=== PATIENT | female | born 1965 | race African-American/Black ===

== ENCOUNTER 2016-03-10 20:46 | Observation (INO) | payer OTHER ==
[~2016-03-10] VITALS: Ht 162.6 cm; Wt 81.6 kg
--- NOTE | 2016-03-10 21:12 | ED NEURO DEFICIT/STROKE ---
History of Present Illness General Chief Complaint: Neuro Symptoms/ Deficit Stated Complaint: RIGHT SIDE FACIAL TINGLING W/HEADACHE Source: patient Exam Limitations: no limitations Vital Signs & Intake/Output Vital Signs & Intake/Output Vital Signs Date Time Temp Pulse Resp B/P Pulse O2 O2 Flow FiO2 Ox Delivery Rate 03/10 2107 98.2 78 16 148/80 98 Room Air Room Air ED Intake and Output 03/11 0000 03/10 1200 Intake Total 120 Output Total Balance 120 Intake, Oral 120 Allergies Coded Allergies: No Known Allergies (03/10/16) Reconcile Medications Albuterol Sulfate (Proair Hfa) 90 MCG HFA.AER.AD 2 PUF INH Q4-6 PRN PRN BREATHING (Reported) Amitriptyline HCl 75 MG TABLET 1 TAB PO QPM DEPRESSION (Reported) Aspirin (Aspirin*) 81 MG TAB.CHEW 1 TAB PO DAILY HEART (Reported) Atorvastatin Calcium 40 MG TABLET 1 TAB PO DAILY HEART (Reported) Fluticasone Propionate (Flonase Allergy Relief) 50 MCG/ACTUATION SPRAY.SUSP 2 SPRAY LIANNA PRN ALLERGIES (Reported) Fluticasone-Salmeterol (Advair 100-50 Diskus) (Unknown Strength) BLST.W.DEV ( Unknown Dose) INH BID BREATHING (Reported) Levomilnacipran Hydrochloride (Fetzima) 40 MG CAP.SA.24H 2 CAP PO DAILY DEPRESSION (Reported) Levothyroxine Sodium 50 MCG TABLET 1 TAB PO DAILY THYROID (Reported) Losartan Potassium 100 MG TABLET 0.5 TAB PO DAILY HEART (Reported) Methylphenidate HCl (Methylphenidate ER) 54 MG TAB.ER.24 1 TAB PO QAM ATTENTION (Reported) Pregabalin (Lyrica) 300 MG CAPSULE 1 CAP PO BID FIBROMYALGIA (Reported) Zolpidem Tartrate 10 MG TABLET 1 TAB PO QPMP SLEEP (Reported) Triage Note: PT TO TRIAGE WITH RIGHT LWOER FACIAL TINGLING SINC E 1200 TODAY. PT STATES SHE HAS HAD A HEADACHE FOR A MONTH ON AND OFF THAT FEELS DIFFERENT TO HER MIGRAINES. PT ALSO STATES SHE HAS "TROUBLE EXPRESSING HERSELF TODAY" WHEN ASKED WHEN IT STARTED, SHE STATES AROUND NOON. PT IS ALERT AND ORIENTED, PT STATES SHE IS NOT HAVING TROUBLE SPEAKING, BUT THIS NURSE HEARS A SLIGHT LISP. PT FACE IS SYMMETRICAL AND HAND GRASP EQUAL Triage Nurses Notes Reviewed? yes Onset: Abrupt Duration: hour(s): Timing: recent history Severity: mild Altered Sensations: numbness and tingling on right face Vision Problem? No Glaucoma? No Impaired Ability: difficult to speak Baseline: alert, oriented x 3 Associated Symptoms: dizziness, headache HPI: 50 yo woman h/o tia six months ago, presents with 9 hours of difficulty speaking with word-finding difficulty. She also has a headache and tingling on the right side of her face. She notes no weakness of her upper or lower extremities or facial droop. Her symptoms have been stable since they began 9 hours ago. Past History Travel History Traveled to [place] past 21 day No Medical History Any Pertinent Medical History? see below for history Neurological: TIA Surgical History Surgical History: none Psychosocial History What is your primary language Syriac Family History Hx Contributory? No Review of Systems Review of Systems Constitutional: Reports: no symptoms. EENTM: Reports: no symptoms. Respiratory: Reports: no symptoms. Cardiovascular: Reports: no symptoms. GI: Reports: no symptoms. Genitourinary: Reports: no symptoms. Musculoskeletal: Reports: no symptoms. Skin: Reports: no symptoms. Neurological/Psychological: Reports: no symptoms. Hematologic/Endocrine: Reports: no symptoms. Immunologic/Allergic: Reports: no symptoms. All Other Systems: Reviewed and Negative Physical Exam Physical Exam General Appearance: well developed/nourished, mild distress Head: atraumatic, normal appearance Eyes: Bilateral: normal appearance, PERRL, EOMI. Ears, Nose, Throat: normal ENT inspection, moist mucous membrane, hearing grossly normal Neck: normal inspection, supple, full range of motion Respiratory: normal breath sounds, chest non-tender, no respiratory distress, quiet respiration, lungs clear Cardiovascular: regular rate/rhythm Gastrointestinal: normal bowel sounds, soft, non-tender, no organomegaly Back: normal inspection Extremities: normal range of motion Psychiatric: awake, alert, oriented x 3 Cranial Nerves: normal hearing, normal speech, PERRL, pt's speaking is slow, but articulation is normal. Coordination/Gait: normal finger to nose Motor/Sensory: no motor/sensory deficits Skin: intact, normal color, warm/dry Core Measures CVA/TIA Diagnosis: Yes NIH Stroke Scale: Total 0 Comment: no need for tpa due to duration of 9 hours of symptoms as well as low stroke score. Severe Sepsis Present: No Septic Shock Present: No Progress Differential Diagnosis: Jackson's Palsy, electrolyte imbalance, tia vs cva Plan of Care: Orders Procedure Date/time Status Nothing by Mouth 03/11 B Active XRY-PORTABLE CHEST XRAY 03/11 9 Active Heart Healthy Diet 03/10 D Complete Intake & Output 03/10 2357 Active Saline Lock 03/[address] in observation 03/10 2233 Active Misc Message 03/10 2233 Active ED Holding Orders 03/10 2233 Active Vital Signs 03/10 2233 Active Code Status 03/10 2233 Active Patient Data 03/10 2152 Active TROPONIN LEVEL 03/10 2055 Complete PARTIAL THROMBOPLASTIN TIME 03/10 2055 Complete PROTHROMBIN TIME 03/10 2055 Complete COMPREHENSIVE METABOLIC PANEL 03/10 2055 Complete CBC WITHOUT DIFFERENTIAL 03/10 2055 Complete EKG 03/10 2055 Active Current Medications Sig/Chu Start time Last Medication Dose Stop Time Status Admin Aspirin 81 MG DAILY 03/11 1000 UNVr (Aspirin) Atorvastatin Calcium 40 MG DAILY 03/11 1000 UNVr (Lipitor) Levothyroxine Sodium 0.05 MG DAILY 03/11 1000 UNVr (Synthroid) Amitriptyline HCl 75 MG AT BEDTIME 03/11 15 UNVr (Elavil 50 MG Tablet) Pregabalin 300 MG BID 03/11 15 UNVr (Lyrica) Zolpidem Tartrate 10 MG .[QPMP] 03/11 15 UNVr (Ambien) Methylphenidate HCl 15 MG BID 03/11 7 UNVr (Ritalin) Laboratory Tests 03/10/162136: Anion Gap 8, Estimated GFR > 60, BUN/Creatinine Ratio 13.3, Glucose 128 H, Calcium 8.8, Total Bilirubin 0.3, AST 27, ALT 36, Alkaline Phosphatase 116, Troponin I < 0.01, Total Protein 6.7, Albumin 3.7, Globulin 3.0, Albumin/ Globulin Ratio 1.2, PT 11.9, INR 1.13, APTT 37, CBC w Diff NO MAN DIFF REQ, RBC 4.83, MCV 81.4, MCH 26.7 L, RDW 13.2, MPV 8.7, Gran % 63.6, Lymphocytes % 25.8, Monocytes % 8.2, Eosinophils % 2.1, Basophils % 0.3, Absolute Granulocytes 3.6, Absolute Lymphocytes 1.5, Absolute Monocytes 0.5, Absolute Eosinophils 0.1, Absolute Basophils 0, PUBS MCHC 32.8 L Diagnostic Imaging: Viewed by Me: CT Scan. Discussed w/RAD: CT Scan. Radiology Impression: head ct... no acute finding. Initial ED EKG: normal axis, normal intervals, normal p-waves, normal QRS complex, normal sinus rhythm Comments: PATIENT: JOANNA JOSE PRESENT AGE: 50 PATIENT ACCOUNT NO: [id number] : 63 LOCATION: [facility] ORDERING PHYSICIAN: JULIA JONES MD SERVICE DATE: 03/10/16 EXAM TYPE: CAT - CT HEAD WO IV CONTRAST EXAMINATION: CT HEAD WITHOUT CONTRAST CLINICAL INFORMATION: Transient ischemic attack. COMPARISON: Noncontrast head CT 07/16/2008. TECHNIQUE: Contiguous axial imaging was performed from the skull base to vertex without intravenous administration of contrast. DLP: 600 mGy-cm. FINDINGS: No acute intracranial abnormality. No acute intracranial hemorrhage, mass or mass effect or abnormal extra-axial fluid collections. The density within the dural venous sinuses is within normal limits. The ventricles are normal in size, without hydrocephalus. There are no focal areas of hypoattenuation within a vascular distribution to suggest acute transcortical ischemia. The basilar cisterns are patent. The sella is mildly prominent and is visualized measuring approximately 1.2 cm in AP diameter. There is CSF attenuation within the sella. The sella previously measured 0.9 cm in AP diameter on a prior head CT dating back to 2008. No acute calvarial abnormality is identified. Soft tissues appear unremarkable. The imaged paranasal sinuses and mastoid air cells are well aerated. IMPRESSION: 1. No acute intracranial abnormality. 2. Incidental note is made of mild prominence of the sella, which is visualized measuring approximately 1.2 cm in diameter. There is CSF fluid attenuation within the sella which could reflect an empty sella. DICTATED BY: JASE ALANIS MD DATE/TIME DICTATED:03/10/162129 [employer] WORKER:JAMES DATE/TIME TRANSCRIBED:03/10/162129 CONFIDENTIAL, DO NOT COPY WITHOUT APPROPRIATE AUTHORIZATION. <Electronically signed in Other Vendor System> SIGNED BY: JASE ALANIS MD 03/10/162135 Departure Departure Disposition: STILL A PATIENT Condition: Stable Clinical Impression Primary Impression: TIA (transient ischemic attack) Referrals: MARCIE NICK,MARITZA Mendez (PCP/Family) Referred to [facility] as new patient No Departure Forms: Customer Survey General Discharge Information Observation Note Spoke With: MING HOFFMANN MD Physician Advisor Notified: BRANDAN NICK,DOT [address] Patient In: Non-ED OBS Care Area Rationale for Observation: My rational for observation is as follows . pt with history of recent tia 8 months ago, presents with dysarthria and word finding difficulties x 9 hours. Due to duration of symptoms and low stroke score, no need for tpa.
--- NOTE | 2016-03-10 21:36 | CT SCAN REPORT ---
EXAMINATION: CT HEAD WITHOUT CONTRAST CLINICAL INFORMATION: Transient ischemic attack. COMPARISON: Noncontrast head CT 07/16/2008. TECHNIQUE: Contiguous axial imaging was performed from the skull base to vertex without intravenous administration of contrast. DLP: 600 mGy-cm. FINDINGS: No acute intracranial abnormality. No acute intracranial hemorrhage, mass or mass effect or abnormal extra-axial fluid collections. The density within the dural venous sinuses is within normal limits. The ventricles are normal in size, without hydrocephalus. There are no focal areas of hypoattenuation within a vascular distribution to suggest acute transcortical ischemia. The basilar cisterns are patent. The sella is mildly prominent and is visualized measuring approximately 1.2 cm in AP diameter. There is CSF attenuation within the sella. The sella previously measured 0.9 cm in AP diameter on a prior head CT dating back to 2008. No acute calvarial abnormality is identified. Soft tissues appear unremarkable. The imaged paranasal sinuses and mastoid air cells are well aerated. IMPRESSION: 1. No acute intracranial abnormality. 2. Incidental note is made of mild prominence of the sella, which is visualized measuring approximately 1.2 cm in diameter. There is CSF fluid attenuation within the sella which could reflect an empty sella.
[2016-03-10 21:44] LABS: ABSOLUTE BASOPHIL COUNT 0 /CUMM (0.0-0.2); ABSOLUTE EOSINOPHIL COUNT 0.1 /CUMM (0.0-0.7); ABSOLUTE GRANULOCYTE CT 3.6 /CUMM (1.4-6.5); ABSOLUTE LYMPH COUNT 1.5 /CUMM (1.2-3.4); ABSOLUTE MONOCYTE COUNT 0.5 /CUMM (0.10-0.60); BASOPHIL % 0.3 % (0.0-2.0); EOSINOPHIL % 2.1 % (0-5); GRANULOCYTE % 63.6 % (42.2-75.2); HEMATOCRIT 39.3 % (37-47); MEAN CORPUSCULAR HGB 26.7 PG (27.0-31.0); MEAN CORPUSCULAR HGB CONC 32.8 G/DL (33.0-37.0); MEAN CORPUSCULAR VOLUME 81.4 FL (81.0-99.0); MEAN PLATELET VOLUME 8.7 FL (7.4-10.4); PLATELET COUNT 225 /CUMM (130-400); RBC DISTRIBUTION WIDTH 13.2 % (11.5-14.5); RED BLOOD CELL CT 4.83 /CUMM (4.20-5.40); WHITE BLOOD CELL COUNT 5.7 /CUMM (4.8-10.8)
[2016-03-10 21:54] LABS: PT 11.9 SEC (9.4-12.5); PTT 37 SEC (25-37)
[2016-03-10] MEDS ORDERED: ATORVASTATIN CA40 M1 PO (21:56)
[2016-03-10] MEDS ORDERED: LYRICA300 M1 PO (21:56)
[2016-03-10] MEDS ORDERED: LOSARTAN POTAS100 M1 PO (21:57)
[2016-03-10] MEDS ORDERED: LEVOTHYROXINE50 MCG PO (21:57)
[2016-03-10] MEDS ORDERED: ZOLPIDEM TARTRA10 M1 PO (21:57)
[2016-03-10] MEDS ORDERED: METHYLPHENIDATE54 M2 PO (21:58)
[2016-03-10] MEDS ORDERED: AMITRIPTYLINE H75 M2 PO (21:59)
[2016-03-10] MEDS ORDERED: ASPIRIN81 M4 PO (21:59)
[2016-03-10] MEDS ORDERED: PROAIR HFA8.5 GM INH (22:00)
[2016-03-10] MEDS ORDERED: ADVAIR 100-501 EACH INH (22:00)
--- NOTE | 2016-03-10 22:11 | History & Physical ---
SEAN LINTON MD 03/10/16 2206: General Information and HPI Source of Information: patient Exam Limitations: no limitations History of Present Illness: Patient is a 50 years old female with past medical history of migraine, depression, anxiety, fibromyalgia, hypothyroidism, hypertension, seasonal allergy , borderline diabetes presented with chief complaints of headache and pain on right side of the face, since couple of days. She is having headache since last 5 days. It is gradually progressing. It is squeezing in nature. Involving right half of the face, going back into the neck, associated with tingling and numbness of the face. At the time of the onset she was unable to saw words on the screen,they were more blurry. She is also complaining of nausea, vomiting.She feels her speech is laboured. Patient denies chest pain, fever, chills, diarrhea, constipation, abdominal pain , trauma, pain in the jaw, difficulty in chewing, difficulty in swallowing, difficulty in hearing, dizziness, staggering gait. Patient claims that she has history of migraines since last 3-4 years. She occasionally, take a combination of Tylenol plus ibuprofen plus lidocaine, which she got from her home country. He does have with her symptoms. At it before. She has very severe migraine so she took a pill and felt a little better. Patient does want to come to the hospital. That's why she waited to come till today in the morning. 6 Months ago. She had an episodes of amnesia associated with focal seizures and rolling of her eyes, following which she was admitted for 7 days and completely evaluated in the [facility]. She does not know exactly the cause of her amnesia and seizures. She claims that she has a small spot in his brain. Past surgical history of-oophorectomy/hysterectomy, stomach surgery. Personal history-quit smoking 27 years ago, does not drink alcohol. Family history of-2 and regular diet of stroke, father of brain tumor. Allergies/Medications Allergies: Coded Allergies: No Known Allergies (03/10/16) Home Med list Albuterol Sulfate (Proair Hfa) 90 MCG HFA.AER.AD 2 PUF INH Q4-6 PRN PRN BREATHING (Reported) Amitriptyline HCl 75 MG TABLET 1 TAB PO QPM DEPRESSION (Reported) Aspirin (Aspirin*) 81 MG TAB.CHEW 1 TAB PO DAILY HEART (Reported) Atorvastatin Calcium 40 MG TABLET 1 TAB PO DAILY HEART (Reported) Fluticasone Propionate (Flonase Allergy Relief) 50 MCG/ACTUATION SPRAY.SUSP 2 SPRAY LIANNA PRN ALLERGIES (Reported) Fluticasone-Salmeterol (Advair 100-50 Diskus) (Unknown Strength) BLST.W.DEV ( Unknown Dose) INH BID BREATHING (Reported) Levomilnacipran Hydrochloride (Fetzima) 40 MG CAP.SA.24H 2 CAP PO DAILY DEPRESSION (Reported) Levothyroxine Sodium 50 MCG TABLET 1 TAB PO DAILY THYROID (Reported) Losartan Potassium 100 MG TABLET 0.5 TAB PO DAILY HEART (Reported) Methylphenidate HCl (Methylphenidate ER) 54 MG TAB.ER.24 1 TAB PO QAM ATTENTION (Reported) Pregabalin (Lyrica) 300 MG CAPSULE 1 CAP PO BID FIBROMYALGIA (Reported) Zolpidem Tartrate 10 MG TABLET 1 TAB PO QPMP SLEEP (Reported) Compliance With Home Meds: GOOD Past History Travel History Traveled to [place] past 21 day No Medical History Neurological: TIA Musculoskeletal: FIBROMYALGIA Psychiatric: depression Endocrine: THYOID Surgical History Surgical History: hysterectomy Review of Systems Review of Systems Constitutional: Denies: chills, diaphoresis, fever, malaise, weakness, unexplained weight loss. EENTM: Reports: blurred vision. Denies: hearing changes, nasal congestion, epistaxis, nasal pain, throat pain, throat swelling, mouth pain, tooth pain. Cardiovascular: Denies: chest pain, edema, orthopena, palpitations, peripheral edema, syncope. Respiratory: Denies: cough, hemoptysis, orthopnea, short of breath, sputum production, stridor, wheezing. GI: Denies: bloating, constipation, diarrhea. Genitourinary: Denies: dysuria, frequency. Musculoskeletal: Denies: back pain, gout, joint pain, joint swelling, muscle pain, muscle stiffness, neck pain. Skin: Denies: no symptoms. Neurological/Psychological: Reports: depressed, tingling. Denies: weakness. Exam & Diagnostic Data Last 24 Hrs of Vital Signs/I&O Vital Signs Date Time Temp Pulse Resp B/P Pulse O2 O2 Flow FiO2 Ox Delivery Rate 03/11 0009 97.1 67 18 149/90 95 Room Air 03/10 2107 98.2 78 16 148/80 98 Room Air Room Air Intake & Output 03/11 0800 03/11 0000 03/10 1600 Intake Total 120 Output Total Balance 120 Intake, Oral 120 Patient 81.647 kg Weight Physical Exam General Appearance Alert, Oriented X3, Cooperative, No Acute Distress Skin No Rashes, No Breakdown HEENT Atraumatic, PERRLA, EOMI Neck Supple, No JVD, No thryomegaly Cardiovascular Regular Rate, Normal S1, Normal S2, No Murmurs Lungs Clear to Auscultation Abdomen Soft, No Tenderness Neurological Normal Speech, Strength at 5/5 X4 Ext, Normal Tone, Sensation Intact, Cranial Nerves 3-12 NL Extremities No Clubbing, No Cyanosis, No Edema, Normal Pulses Vascular Normal Pulses Assessment/Plan Assessment: Assessment and plan - CT Scan of Head - 1. No acute intracranial abnormality. 2. Incidental note is made of mild prominence of the sella, which is visualized measuring 1.2 cm in diameter. There is CSF fluid attenuation within the sella which could reflect an empty sella. Problem list- Facial tingling and numbness, probable cause is a typical migraine/TIA/otitis media/Jackson's palsy/trigeminal neuralgia Migraine Hypertension Hypothyroidism Depression Anxiety Fibromyalgia Borderline diabetes Plan Facial tingling and numbness, probable cause is a typical migraine/TIA/otitis media/Jackson's palsy/trigeminal neuralgia/ Migraine * CT scan does not showed any acute changes, so will plan for MRI of the brain to rule out any ischemic infarct * We will give the patient tablet, aspirin 325 mgs once, followed by 81 mgs PO OD * We will do echocardiogram/carotid Doppler to rule out the causes of embolization * Neurochecks every 4 hourly * We will place a neurology consult and follow the recommendation * Meantime, we will give Tylenol/morphine to take care of the pain Hypertension * We'll continue tablet Cozaar 50 milligrams OD as before Hypothyroidism * We will continue levothyroxine as before Depression/Anxiety/Fibromyalgia * We will continue zolpidem, methylphenidate, Lyrica, amitriptyline * We will add FetZemia to the regimen. Pharmacy doesn't have this medication and patient will bring from home * We will place a consult to follow-up with all antipsychotic medication Borderline diabetes * She is managing diabetes by taking care of diet and exercise * Will check HbA1c to see the control of the blood sugar level in her body Diet -heart healthy diet DVT prophylaxis -ALP S/heparin CODE STATUS -full code As Ranked By This Provider Problem List: 1. TIA (transient ischemic attack) 2. Fibromyalgia 3. Migraine 4. Borderline diabetes mellitus 5. Hypothyroidism 6. Hypertension Core Measures/Miscellaneous Acute Coronary Syndrome ACS Diagnosis: No Cerebrovascular Accident CVA/TIA Diagnosis: Yes NIH Stroke Scale: Total 0 Date Last Known Well: 03/11/16 Congestive Heart Failure CHF Diagnosis: No Venous Thromboembolism VTE Risk Factors: Age > 40, Obesity VTE Prophylaxis Ordered Inpt: Mechanical (ALPS/TEDS) No Mech VTE prophylaxis d/t: No contraindications No VTE Pharm Prophylaxis d/t: No contraindications VTE Diagnosis: No VTE Type: NONE VTE Confirmed by (Test): NONE Severe Sepsis Severe Sepsis Present: No Septic Shock Septic Shock Present: No Miscellaneous Documentation Attending Case Discussed With: MING HOFFMANN MD Primary Care Physician: MARITZA JACK MD Patient sees these Specialists cardiology gastero neuro Level of Patient Care: Telemetry JESSIE REVELES 03/11/16 0041: Resident Review Statement Resident Statement: examined this patient, discussed with machine learning intern, agreed with machine learning intern, amended to note Other Findings: 50 -year-old lady with past medical history of hypertension, anxiety, depression , previous TIA 6 months ago, fibromyalgia,ADHD? 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 Patient reportedly started having headaches on the right side of back of her head, squeezing, 10 out of 10, associated with stress, blurry vision 3 times, not associated with photophobia, vomiting, dizziness, tinnitus, weakness in the limbs. Patient has taken some medication from [place] for pain control. She reported that the headaches persisted through today and today she had difficulty finding words, tingling on her right chin with mild nausea. Patient' s symptoms are much better now after 975 acetaminophen. Patient has a history of TIA/CVA and according to her full workup done . cell tuber hand dr rodriguez, Rheum Dr. Leyva. Patient denies diarrhea, constipation, changes in urinary or bowel habits Vital signs in addition 95% oxygen saturation on room air, temperature 97.1, WI 67, RR 18, BP 149/90 General appearance alert and oriented 3, not in distress HEENT Atraumatic, PERRLA, EOMI Neck Supple, No JVD, No thryomegaly, mild pain in the right jaw and back of the head on the right side Cardiovascular Regular Rate, Normal S1, Normal S2 Lungs Clear to Auscultation, Normal Air Movement Abdomen Normal Bowel Sounds, Soft, No Tenderness, No Hepatospenomegaly, No Masses, Neurological Normal Speech, Strength at 5/5 X4 Ext, Sensation Intact, cranial nerves grossly normal Extremities No Clubbing, No Cyanosis, trace Edema bilaterally ,Normal Pulses EKG showed normal sinus rhythm, QTC 440, no previous EKGs, inverted T's in lead 3 and V1, no acute ST-T changes HEAD CT IMPRESSION: 1. No acute intracranial abnormality. 2. Incidental note is made of mild prominence of the sella, which is visualized measuring approximately 1.2 cm in diameter. There is CSF fluid attenuation within the sella which could reflect an empty sella. Notable labs HCO3 31 Assessment and plan #Atypical migraine versus TIA versus trigeminal nervalgia -Echocardiogram -High-dose aspirins once and continue aspirin and statin -Carotid Doppler ultrasounds -Neurology consult in the morning -Neuro checks Q4 -High-dose Tylenol for pain in addition to morphine -MRI is not availabe till Sunday History of hypertension -Continue Cozaar History of anxiety/depression/ADHD?/Insomnia/fibromyalgia -Continue zolpidem, methylphenidate, Lyrica, amitriptyline -Consider psych consult for medication adjustment -Pharmacy does not had FETZMIA, patient needs to bring it from home. -Hypothyroidism -Continue levothyroxine DVT prophylaxis is mechanical and Lovenox, full code, heart healthy diet, Tylenol & morphine for pain MING HOFFMANN 03/11/16 0644: Attending MD Review Statement Attending Statement Attending MD Statement: examined this patient, discuss w/resident/PA/GLAZE MAKER, agreed w/resident/PA/GLAZE MAKER, discussed with family, reviewed EMR data (avail), reviewed images, amended to note Attending Assessment/Plan: Cc: Right-sided headache, tingling in right face, difficulty in speaking PMH: History of TIA 6 months back, fibromyalgia, anxiety, depression, migraine, HTN, hypothyroidism Patient started to notice headache on right side mostly behind her ear. She tried some medication brought from [facility] for migraine. Today patient noticed tingling of her right side of her face, and difficulty speaking. Patient had blurry vision for 2 days. She had history of TIA, she was concerned so she came to ER. No chest pain, palpitations, neurological weakness in upper or lower extremities, loss of consciousness, falls. Vitals: afebrile, RR, HR, BP, O2 saturation within acceptable range. On examination: a O 3, no acute distress, complete neurological examination did not reveal any focal neurological deficit including Cranial nerves except gait could not be assessed. Speech was clear. CVS: S1-S2, RRR. RS: Clear air entry bilaterally present. Abdomen: Soft, NT, ND bowel sounds present, no dependent edema . Labs: CBC, BMP, LFT unremarkable. INR 1.13. EKG no remarkable changes. CT head: No acute intracranial abnormality. Incidental note is made of mild prominence of the sella, which is visualized measuring approximately 1.2 cm in diameter. There is CSF fluid attenuation within the sella which could reflect an empty sella. A and P #1 tingling numbness on the right lower aspect of her face along with speech difficulty: Associated with headache, less likely TIA, questionable complicated migraine. Check ESR, neurochecks, MRI of brain, carotid Doppler, 2-D echo, neurologic consult in a.m. I suggested not to take the medications which she brought from [facility]. Continue aspirin and statin. Check lipid profile if not done #2 chronic stable conditions: Fibromyalgia, anxiety, depression, HTN, hypothyroidism continue rest of her home medications. Including Lyrica, losartan, Synthroid, zolpidem, amitriptyline, methylphenidate. #3 DVT prophylaxis with Lovenox. Adequate pain control.
[2016-03-10] MEDS ORDERED: FLONASE ALLERG9.9 ML NAS (22:55)
[2016-03-10] MEDS ORDERED: FETZIMA40 M1 PO (23:31)
--- NOTE | 2016-03-11 00:42 | Patient Discharge Instructions ---
Discharge Instructions General Discharge Information You were seen/treated for: TIA ATYPICAL MIGRAINE You had these procedures: NONE Watch for these problems: HEADACHE PAIN RIGHT SIDE OF THE FACE Special Instructions: FOLLOW UP WITH YOUR PRIMARY CARE DOCTOR IN 1 WEEK FOLLOW UP WITH NEUROLOGIST IN ONE WEEK Diet Continue normal diet: Yes Activity Full Activity/No Limits: Yes Acute Coronary Syndrome Inclusion Criteria At DC or during hospital stay patient has or had the following: ACS DIAGNOSIS No Discharge Core Measures Meds if any: Prescribed or Continued at Discharge Meds if any: NOT Prescribed or Continued at Discharge Congestive Heart Failure Inclusion Criteria At DC or during hospital stay patient has or had the following: CHF DIAGNOSIS No Discharge Core Measures Meds if any: Prescribed or Continued at Discharge Meds if any: NOT Prescribed or Continued at Discharge Cerebrovascular accident Inclusion Criteria At DC or during hospital stay patient has or had the following: CVA/TIA Diagnosis Yes Discharge Core Measures Meds if any: Prescribed or Continued at Discharge Meds if any: NOT Prescribed or Continued at Discharge Venous thromboembolism Inclusion Criteria VTE Diagnosis No VTE Type NONE VTE Confirmed by (Test) NONE Discharge Core Measures - Per Current guidelines, there needs to be overlap - treatment for the first 5 days of Warfarin therapy. - If discharged on Warfarin prior to 5 days of - overlap therapy, the patient will need to be - assessed for post discharge needs including - *Post discharge parental anticoagulation - *Warfarin and/or parental anticoagulation education - *Follow up date to check INR post discharge At least 5 days overlap therapy as Inpatient No Meds if any: Prescribed or Continued at Discharge Note: Overlap Therapy is Warfarin and Anticoagulant Meds if any: NOT Prescribed or Continued at Discharge
[2016-03-11 01:11] VITALS: BP 140/90
--- NOTE | 2016-03-11 06:35 | PN- Housestaff ---
JESSIE REVELES 03/11/16 0635: Subjective Follow-up For: rule out TIA Subjective: I have seen and examined the patient. she still has the 4 pain in her head. but tingling is better. Review of Systems Constitutional: Reports: see HPI. Objective Last 24 Hrs of Vital Signs/I&O Vital Signs Date Time Temp Pulse Resp B/P Pulse O2 O2 Flow FiO2 Ox Delivery Rate 03/11 0202 77 140/90 03/11 0111 98.0 76 20 140/90 96 Room Air 03/11 0009 97.1 67 18 149/90 95 Room Air 03/10 2107 98.2 78 16 148/80 98 Room Air Room Air Intake & Output 03/11 0800 03/11 0000 03/10 1600 Intake Total 200 120 Output Total Balance 200 120 Intake, Oral 200 120 Patient 180 lb Weight Physical Exam General Appearance: Alert, Oriented X3, Cooperative, No Acute Distress Cardiovascular: Regular Rate, No Murmurs Lungs: Clear to Auscultation, Normal Air Movement Abdomen: Normal Bowel Sounds, Soft, No Tenderness, No Hepatospenomegaly, No Masses Extremities: No Clubbing, No Cyanosis Current Medications: Current Medications Sig/Chu Start time Last Medication Dose Route Stop Time Status Admin Acetaminophen 650 MG Q6P PRN 03/11 0015 AC PO Acetaminophen 0 .STK-MED ONE 03/10 2220 DC PO Acetaminophen 975 MG ONCE ONE 03/10 2215 DC 03/10 PO 03/10 2216 2225 Amitriptyline HCl 75 MG AT BEDTIME 03/11 0015 AC 03/11 PO 0203 Aspirin 81 MG DAILY 03/11 1000 AC 03/11 PO 0916 Aspirin 0 .STK-MED ONE 03/10 2221 DC PO Aspirin 325 MG ONCE ONE 03/10 2215 DC 03/10 PO 03/10 2216 2225 Atorvastatin Calcium 40 MG DAILY 03/11 1000 AC 03/11 PO 0916 Levothyroxine Sodium 0.05 MG DAILY AC 03/11 0700 AC 03/11 PO 0703 Losartan Potassium 50 MG DAILY 03/11 0130 AC 03/11 PO 0915 Methylphenidate HCl 15 MG 0800,1300 03/11 1000 AC 03/11 PO 0916 Morphine Sulfate 1 MG Q6-PRN PRN 03/11 0045 AC IV Pregabalin 300 MG BID 03/11 0015 AC 03/11 PO 0917 Tramadol HCl 50 MG Q4 03/11 1000 UNVr 03/11 PO 0918 Zolpidem Tartrate 10 MG AT BEDTIME 03/11 2200 AC 03/11 PO 0204 Zolpidem Tartrate 5 MG AT BEDTIME 03/11 0015 DC PO Assessment/Plan Assessment: 50 -year-old lady with past medical history of hypertension, anxiety, depression , previous TIA 6 months ago, fibromyalgia,ADHD? 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 Patient reportedly started having headaches on the right side of back of her head, squeezing, 10 out of 10, associated with stress, blurry vision 3 times, not associated with photophobia, vomiting, dizziness, tinnitus, weakness in the limbs. Patient has taken some medication from [place] for pain control. She reported that the headaches persisted through today and today she had difficulty finding words, tingling on her right chin with mild nausea. Patient' s symptoms are much better now after 975 acetaminophen. Patient has a history of TIA/CVA and according to her full workup done . 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 Leyva. Patient denies diarrhea, constipation, changes in urinary or bowel habits Vital signs in addition 95% oxygen saturation on room air, temperature 97.1, AK 67, RR 18, BP 149/90 General appearance alert and oriented 3, not in distress HEENT Atraumatic, PERRLA, EOMI Neck Supple, No JVD, No thryomegaly, mild pain in the right jaw and back of the head on the right side Cardiovascular Regular Rate, Normal S1, Normal S2 Lungs Clear to Auscultation, Normal Air Movement Abdomen Normal Bowel Sounds, Soft, No Tenderness, No Hepatospenomegaly, No Masses, Neurological Normal Speech, Strength at 5/5 X4 Ext, Sensation Intact, cranial nerves grossly normal Extremities No Clubbing, No Cyanosis, trace Edema bilaterally ,Normal Pulses EKG showed normal sinus rhythm, QTC 440, no previous EKGs, inverted T's in lead 3 and V1, no acute ST-T changes HEAD CT IMPRESSION: 1. No acute intracranial abnormality. 2. Incidental note is made of mild prominence of the sella, which is visualized measuring approximately 1.2 cm in diameter. There is CSF fluid attenuation within the sella which could reflect an empty sella. Notable labs HCO3 31 Assessment and plan #Atypical migraine versus TIA versus trigeminal nervalgia -Echocardiogram -High-dose aspirins once and continue aspirin and statin -Carotid Doppler ultrasounds -Neurology consult pending -Neuro checks Q4 -High-dose Tylenol for pain in addition to morphine -ESR for rule out GCA and lipid panel is pending -MRI is not available till Sunday History of hypertension -Continue Cozaar History of anxiety/depression/ADHD?/Insomnia/fibromyalgia -Continue zolpidem, methylphenidate, Lyrica, amitriptyline -Pharmacy does not had FETZMIA, patient needs to bring it from home. -Hypothyroidism -Continue levothyroxine DVT prophylaxis is mechanical and Lovenox, full code, heart healthy diet, Tylenol & morphine for pain Problem List: 1. TIA (transient ischemic attack) Pain Ratin Pain Location: headache Pain Goal: Pain 4 or less Pain Plan: same Tomorrow's Labs & Rationales: cbc timurp PATTI NICK,ANAHI 03/11/16 1122: Attending MD Review Statement Attending Statement Attending MD Statement: examined this patient, discuss w/resident/PA/MOVING WORKER, agreed w/resident/PA/MOVING WORKER, reviewed EMR data (avail), discussed with nursing, discussed with case mgmt, amended to note Attending Assessment/Plan: Patient seen and examined. She was resting comfortably when I entered the room. She reports 5/10 occipital headache. She reports that this headache is different from her routine migraine headaches. She gives a history of migraine agents for several years with an episode that lasted around 5 months. She follows up with a neurologist in [place]. She has tried different medications for migraine. She reports that she is in the process of having a special tests ordered for home migraines by a neurologist however it appears that this has been denied by the insurance service. She presented to the emergency room for evaluation yesterday as I headache was different in nature more concerning associated with heaviness and numbness of her tongue with some slurring of speech. She denied any other neurological deficits. Her symptoms have since resolved other than the mild headache. On examination she has no focal neurologic deficits. She has had no events on telemetry so far. Recommendations: -Recommend addition of nonsteroidal anti-inflammatory medications to her regimen. Begin patient on Toradol 15 mg IV when necessary for her headaches. -Follow-up with the neurology service. -Patient reports admission to [facility] about 6 months ago for what was diagnosed as TIA. He describes similar symptoms at the time. She reports a hospital stay of about a week. She reports having an MRI done at that time among other worker. -If her headache improves and cleared by the neurology service, patient may be discharged to follow-up with her primary care provider as an outpatient.
[2016-03-11 08:39] VITALS: BP 132/82
--- NOTE | 2016-03-11 13:07 | ULTRASOUND REPORT ---
EXAMINATION: US DUPLEX CAROTID AND VERTEBRAL CLINICAL INFORMATION: TIA COMPARISON: None TECHNIQUE: Real-time ultrasound and Doppler techniques (integrating B-mode 2D vascular images, Doppler spectral analysis and color flow Doppler imaging) were utilized to interrogate the extracranial carotid and vertebral arteries bilaterally. The degree of stenosis determined by criteria similar to NASCET. FINDINGS: The right common carotid artery is patent. There is calcified plaque seen at the right carotid bulb. Right ICA peak systolic velocity is 72 cm/s, end diastolic velocity 34 cm/s suggestive of 0-49% right ICA stenosis. The right ECA is patent. The right vertebral artery is not visualized. The left common carotid artery is patent. There is calcified plaque seen at the left carotid bulb and proximal ICA. Left ICA peak systolic velocity is 98 cm/s, end-diastolic velocity 35 cm/s suggestive of 0-49% left ICA stenosis. The left ECA is patent. Antegrade flow is seen in the left vertebral artery. IMPRESSION: Bilateral calcified plaque. 0-49% ICA stenosis bilaterally. Right vertebral artery not identified. Patent left vertebral artery.
--- NOTE | 2016-03-11 18:08 | Cons- Neurology ---
General Information and HPI Consulting Request Date of Consult: 03/11/16 Requested By: MING HOFFMANN MD Reason for Consult: MOROCHO, ?TIA Source of Information: patient, family, EMR Exam Limitations: no limitations History of Present Illness: 50-year-old woman with prior history of TIA versus complicated migraine for which she was hospitalized at [facility] in August and had an unremarkable workup including brain MRI, carotid ultrasound, and echocardiogram. Has been maintained on antiplatelet and statin therapy as well as antihypertensive therapy. Presented here with a complaint of headache and tingling of the tip of her tongue. No facial droop, mild difficulty focusing her vision yesterday which has since resolved. No diplopia, no dysarthria, no focal limb weakness, no sensory disturbance of the extremities, no chest pain or palpitations. Also history of fibromyalgia for which she is followed by the check examiner Dr. Guido and is maintained on amitriptyline and Lyrica Also history of depression for which she is followed by Dr. Bowen Gomez and takes methylphenidate Allergies/Medications Allergies: Coded Allergies: No Known Allergies (03/10/16) Home Med List: Albuterol Sulfate (Proair Hfa) 90 MCG HFA.AER.AD 2 PUF INH Q4-6 PRN PRN BREATHING (Reported) Amitriptyline HCl 75 MG TABLET 1 TAB PO QPM DEPRESSION (Reported) Aspirin (Aspirin*) 81 MG TAB.CHEW 1 TAB PO DAILY HEART (Reported) Atorvastatin Calcium 40 MG TABLET 1 TAB PO DAILY HEART (Reported) Fluticasone Propionate (Flonase Allergy Relief) 50 MCG/ACTUATION SPRAY.SUSP 2 SPRAY LIANNA PRN ALLERGIES (Reported) Fluticasone-Salmeterol (Advair 100-50 Diskus) (Unknown Strength) BLST.W.DEV ( Unknown Dose) INH BID BREATHING (Reported) Levomilnacipran Hydrochloride (Fetzima) 40 MG CAP.SA.24H 2 CAP PO DAILY DEPRESSION (Reported) Levothyroxine Sodium 50 MCG TABLET 1 TAB PO DAILY THYROID (Reported) Losartan Potassium 100 MG TABLET 0.5 TAB PO DAILY HEART (Reported) Methylphenidate HCl (Methylphenidate ER) 54 MG TAB.ER.24 1 TAB PO QAM ATTENTION (Reported) Pregabalin (Lyrica) 300 MG CAPSULE 1 CAP PO BID FIBROMYALGIA (Reported) Zolpidem Tartrate 10 MG TABLET 1 TAB PO QPMP SLEEP (Reported) Current Medications: Current Medications Sig/Chu Start time Last Medication Dose Route Stop Time Status Admin Acetaminophen 650 MG Q6P PRN 03/11 0015 AC PO Acetaminophen 0 .STK-MED ONE 03/10 2220 DC PO Acetaminophen 975 MG ONCE ONE 03/105 DC 03/10 PO 03/10 2216 2225 Amitriptyline HCl 75 MG AT BEDTIME 03/11 0015 AC 03/11 PO 0203 Aspirin 81 MG DAILY 03/11 1000 AC 03/11 PO 0916 Aspirin 0 .STK-MED ONE 03/10 2221 DC PO Aspirin 325 MG ONCE ONE 03/105 DC 03/10 PO 03/10 2216 222 Atorvastatin Calcium 40 MG DAILY 03/11 1000 AC 03/11 PO 0916 Ketorolac 15 MG ONCE PRN 03/11 1345 AC Tromethamine IV Levothyroxine Sodium 0.05 MG DAILY AC 03/11 0700 AC 03/11 PO 0703 Losartan Potassium 50 MG DAILY 03/11 0130 AC 03/11 PO 0915 Methylphenidate HCl 15 MG 0800,1300 03/11 1000 AC 03/11 PO 1344 Morphine Sulfate 1 MG Q6-PRN PRN 03/11 0045 AC IV Pregabalin 300 MG BID 03/11 0015 AC 03/11 PO 0917 Tramadol HCl 50 MG Q4 03/11 1000 DC 03/11 PO 0918 Tramadol HCl 50 MG Q4 PRN 03/11 1000 DC 03/11 PO 1342 Zolpidem Tartrate 10 MG AT BEDTIME 03/11 2200 AC 03/11 PO 0204 Zolpidem Tartrate 5 MG AT BEDTIME 03/11 0015 DC PO Review of Systems Review of Systems: REVIEW OF SYSTEMS: (-) = negative / normal blank = not discussed Neurologic: see HPI Eyes: (-) ENT: (-) Constitutional: (-) CV: (-) Respiratory: (-) /Renal: (-) Musculoskeletal: See HPI Skin: (-) Psychiatric: See HPI Heme: (-) GI: (-) Allergy/Immune: (-) Endocrine: (-) Other: (-) Past History Travel History Traveled to [place] past 21 day No Medical History Blood Transfusion Hx: Yes Neurological: migraine, TIA Musculoskeletal: FIBROMYALGIA Psychiatric: depression Endocrine: THYOID Surgical History Surgical History: hysterectomy Psychosocial History Smoking Status: Former Smoker Employment History Employment: Employed 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 Exam & Diagnostic Data Vital Signs and I&O Vital Signs Date Time Temp Pulse Resp B/P Pulse O2 O2 Flow FiO2 Ox Delivery Rate 03/11 0915 62 132/82 03/11 0839 97.8 62 16 132/82 95 Room Air 03/11 0202 77 140/90 03/11 0111 98.0 76 20 140/90 96 Room Air 03/11 0009 97.1 67 18 149/90 95 Room Air 03/10 2107 98.2 78 16 148/80 98 Room Air Room Air Intake & Output 03/11 1600 03/11 0800 03/11 0000 Intake Total 200 120 Output Total Balance 200 120 Intake, Oral 200 120 Patient 180 lb Weight Physical Exam: PHYSICAL EXAMINATION: nl = normal NT or blank = not tested GENERAL Appearance: nl Head: nl Eyes: nl ENT: nl Neck: nl Carotids: nl Lungs: nl Heart: nl Extremities: nl Spine: nl NEUROLOGIC MENTAL STATUS Level of consciousness: nl Orientation: nl Attention / Concentration: nl Memory: nl Fund of Knowledge: nl Speech / Language: nl NEUROLOGIC CRANIAL NERVES I: Olfaction: NT II: Optic nerves: nl Visual weeks: nl III: Pupils: nl Levator palpebrae: nl III, IV, : Ocular alignment: nl Extraocular motility: nl Pursuits/ saccades: nl V: Facial sensation: nl Masseter/Pterygoids: nl VII: Facial Motor: nl VIII: Hearing (finger rub): nl IX, X: Uvula and palate: nl XI: SCM, Upper trap.: nl XII: Tongue: nl MOTOR / NEUROMUSCULAR Bulk: nl Tone: nl Strength: nl Rapid alternating movements: nl Fine motor movements: nl Abnormal / involuntary movements: none CEREBELLAR / COORDINATION: intact SENSATION: intact DTR's symmetrically trace to 1+ JESUS'S: (-) PLANTARS: flexor GAIT: nl Last 48 Hours of Lab Results: Laboratory Tests 03/11 03/10 7447 7 Chemistry Sodium (137 - 145 mmol/L) 142 Potassium (3.5 - 5.1 mmol/L) 4.1 Chloride (98 - 107 mmol/L) 103 Carbon Dioxide (22 - 30 mmol/L) 31 H Anion Gap (5 - 16) 8 BUN (7 - 17 mg/dL) 12 Creatinine (0.5 - 1.0 mg/dL) 0.9 Estimated GFR (>60 ml/min) > 60 BUN/Creatinine Ratio (7 - 25 %) 13.3 Glucose (65 - 99 mg/dL) 128 H Calcium (8.4 - 10.2 mg/dL) 8.8 Total Bilirubin (0.2 - 1.3 mg/dL) 0.3 AST (14 - 36 U/L) 27 ALT (9 - 52 U/L) 36 Alkaline Phosphatase (<127 U/L) 116 Troponin I (< 0.11 ng/ml) < 0.01 Total Protein (6.3 - 8.2 g/dL) 6.7 Albumin (3.5 - 5.0 g/dL) 3.7 Globulin (1.9 - 4.2 gm/dL) 3.0 Albumin/Globulin Ratio (1.1 - 2.2 %) 1.2 Triglycerides (<150 mg/dL) 49 Cholesterol (<200 MG/DL) 127 LDL Cholesterol, Calc (65 - 129 mg/dL) 68 HDL Cholesterol (40 - 60 mg/dL) 50 Cholesterol/HDL Ratio (0.00 - 4.23 %) 3 Coagulation PT (9.4 - 12.5 SEC) 11.9 INR (0.90 - 1.19) 1.13 APTT (25 - 37 SEC) 37 Hematology CBC w Diff NO MAN DIFF REQ WBC (4.8 - 10.8 /CUMM) 5.7 RBC (4.20 - 5.40 /CUMM) 4.83 Hgb (12.0 - 16.0 G/DL) 12.9 Hct (37 - 47 %) 39.3 MCV (81.0 - 99.0 FL) 81.4 MCH (27.0 - 31.0 PG) 26.7 L RDW (11.5 - 14.5 %) 13.2 Plt Count (130 - 400 /CUMM) 225 MPV (7.4 - 10.4 FL) 8.7 Gran % (42.2 - 75.2 %) 63.6 Lymphocytes % (20.5 - 51.1 %) 25.8 Monocytes % (1.7 - 9.3 %) 8.2 Eosinophils % (0 - 5 %) 2.1 Basophils % (0.0 - 2.0 %) 0.3 Absolute Granulocytes (1.4 - 6.5 /CUMM) 3.6 Absolute Lymphocytes (1.2 - 3.4 /CUMM) 1.5 Absolute Monocytes (0.10 - 0.60 /CUMM) 0.5 Absolute Eosinophils (0.0 - 0.7 /CUMM) 0.1 Absolute Basophils (0.0 - 0.2 /CUMM) 0 PUBS MCHC (33.0 - 37.0 G/DL) 32.8 L ESR Westergren (0 - 20 MM) 23 H Imaging/Other Studies: Head CT IMPRESSION: 1. No acute intracranial abnormality. 2. Incidental note is made of mild prominence of the sella, which is visualized measuring approximately 1.2 cm in diameter. There is CSF fluid attenuation within the sella which could reflect an empty sellaCarotid ultrasound: IMPRESSION: Bilateral calcified plaque. 0-49% ICA stenosis bilaterally. Right vertebral artery not identified. Patent left vertebral artery. (No stenosis on carotid ultrasound, normal brain MRI (aside from empty sella), normal echocardiogram with bubble study, all done at [facility] August 2015) Assessment/Plan Assessment: TIA versus complicated migraine headache Unremarkable stroke workup here presently, and also at [facility] 6 months ago Recommendations: Continue antiplatelet and statin therapy Okay to discharge home from a neurologic standpoint Office follow-up when necessary (patient known to my associate Dr. Sanchez) Consult Acknowledgment - Thank you for your consult request.
[2016-03-11 23:00] VITALS: BP 124/72
--- NOTE | 2016-03-12 08:24 | PN- Housestaff ---
ELI MOISE 03/12/16 0824: Subjective Follow-up For: Questionable TIA Complicated migraine Complaints: pain scale (0-10) Tele-Events Since Last Visit: She is in sinus rhythm Rate 61-92. No other acute events noticed on telemetry monitoring Subjective: Patient was seen and examined this morning. She is alert, awake and oriented to time place and person. No other acute events noticed overnight. She denied any weakness, numbness or tingling sensation. She denied any headache this morning. She is symptom free. She denied any changes in vision, swallowing. changes. She offers no complaints. She is willing to go home this morning. Vitals remained stable. Afebrile, heart rate 90, respiratory rate 18, blood pressure 106/70, saturating at 95% on room air. Review of Systems Constitutional: Denies: see HPI. Objective Last 24 Hrs of Vital Signs/I&O Vital Signs Date Time Temp Pulse Resp B/P Pulse O2 O2 Flow FiO2 Ox Delivery Rate 03/12 1031 82 98/64 03/12 0842 97.9 90 18 106/72 95 Room Air 03/11 2300 98.1 81 18 124/72 97 Room Air 03/11 1925 98.2 Intake & Output 03/12 1600 03/12 0800 03/12 0000 Intake Total 200 900 Output Total Balance 200 900 Intake, IV 0 0 Intake, Oral 200 900 Number 0 0 Bowel Movements Physical Exam General Appearance: Alert, Oriented X3, Cooperative, No Acute Distress Skin: No Rashes, No Breakdown HEENT: Atraumatic, Mucous Membr. moist/pink Neck: Supple, No JVD Lymphatic: Cervical nl Cardiovascular: Regular Rate, Normal S1, Normal S2, No Murmurs Lungs: Normal Air Movement Abdomen: Normal Bowel Sounds, Soft, No Tenderness Neurological: Normal Speech, Strength at 5/5 X4 Ext, Normal Tone, Sensation Intact, Cranial Nerves 3-12 NL Extremities: No Clubbing, No Cyanosis, No Edema Vascular: Normal Pulses Current Medications: Current Medications Sig/Chu Start time Last Medication Dose Route Stop Time Status Admin Acetaminophen 650 MG Q6P PRN 03/11 15 DCD PO Amitriptyline HCl 75 MG AT BEDTIME 03/11 15 DCD 03/11 PO 2208 Aspirin 81 MG DAILY 03/11 1000 DCD 03/12 PO 1031 Atorvastatin Calcium 40 MG DAILY 03/11 1000 DCD 03/12 PO 1031 Ketorolac 15 MG ONCE PRN 03/11 1345 DCD 03/11 Tromethamine IV 2000 Levothyroxine Sodium 0.05 MG DAILY AC 03/11 0700 DCD 03/12 PO 0640 Losartan Potassium 50 MG DAILY 03/11 0130 DCD 03/12 PO 1031 Methylphenidate HCl 15 MG 0800,1300 03/11 1000 DCD 03/12 PO 1031 Morphine Sulfate 1 MG Q6-PRN PRN 03/11 0045 DCD IV Pregabalin 300 MG BID 03/11 0015 DCD 03/12 PO 1029 Tramadol HCl 50 MG Q4 PRN 03/11 1000 DC 03/11 PO 1342 Zolpidem Tartrate 10 MG AT BEDTIME 03/11 2200 DCD 03/11 PO 2208 Last 24 Hrs of Lab/William Results Last 24 Hrs of Labs/Mics: Laboratory Tests 03/12/16 0650: Anion Gap 10, Estimated GFR > 60, BUN/Creatinine Ratio 22.2 Assessment/Plan Assessment: 50 -year-old lady with past medical history of hypertension, anxiety, depression , previous TIA 6 months ago, fibromyalgia,ADHD? ,multiple or complex director surgeries(oophorectomy and hysterectomy) with bariatric surgery, shoulder surgery, migraine came to the hospital With chief complaint of headache, difficulty finding words, tingling in the right side of the face. Patient has a history of TIA/CVA and according to her full workup done. Vital signs 95% oxygen saturation on room air, temperature 97.1, VA 67, RR 18, BP 149/90 EKG showed normal sinus rhythm, QTC 440, no previous EKGs, inverted T's in lead 3 and V1, no acute ST-T changes HEAD CT IMPRESSION: 1. No acute intracranial abnormality. 2. Incidental note is made of mild prominence of the sella, which is visualized measuring approximately 1.2 cm in diameter. There is CSF fluid attenuation within the sella which could reflect an empty sella. #Atypical migraine versus TIA versus trigeminal nervalgia -Echocardiogram FOLLOW UP. -High-dose aspirins once and continued aspirin and statin -Carotid Doppler ultrasounds-normal -Neurology consulted-unremarkable stroke workup. Okay to discharge home from neurologic standpoint. advised her to follow-up in the office. -Neuro checks Q4 -High-dose Tylenol for pain in addition to morphine History of hypertension -Continue cozar History of anxiety/depression/ADHD?/Insomnia/fibromyalgia -Continue zolpidem, methylphenidate, Lyrica, amitriptyline -Hypothyroidism -Continue levothyroxine DVT prophylaxis is mechanical and Lovenox, full code, heart healthy diet, Tylenol & morphine for pain Problem List: 1. TIA (transient ischemic attack) 2. Hypertension 3. Hypothyroidism 4. Borderline diabetes mellitus 5. Fibromyalgia 6. Migraine Pain Ratin Pain Location: headache- migraine Pain Goal: Pain 4 or less Pain Plan: ketorolac tylinol Tramadol Tomorrow's Labs & Rationales: none PATTI NICK,SUADFRANCISCOSHAUN 03/12/16 0834: Attending MD Review Statement Attending Statement Attending MD Statement: examined this patient, discuss w/resident/PA/FORGING PRESS OPERATOR, agreed w/resident/PA/FORGING PRESS OPERATOR, reviewed EMR data (avail), discussed with nursing, discussed with case mgmt, amended to note Attending Assessment/Plan: Patient seen and examined. Resting comfortably and not in acute distress. She received, no focal pain control yesterday and has been pain-free since. She denies any neurological symptoms. Denies any tingling of the tongue numbness. Neurology evaluation appreciated. No events on telemetry overnight. On examination she has no gross focal neurologic deficits. Problems: 1. TIA versus complicated migraine. -This diagnosis was discussed with the patient. -She is currently pain free and without neurologic deficits. -We have advised her to follow-up with the neurology service as an outpatient. -She is not requesting any medications for pain control at present. -She is medically stable to be discharged home today.
[2016-03-12 08:42] VITALS: BP 106/72
[2016-03-12 10:31] VITALS: BP 98/64
== END 2016-03-12 11:00 ==
LOC: ERH 20:46 → 1NO 22:33 → ERHI 22:33 → 1NO 03-11 01:10
PROVIDERS: Internal Medicine; Pediatrics; ADMIT Internal Medicine
DX: G45.9 Transient cerebral ischemic attack, unspecified (principal); G43.909 Migraine, unspecified, not intractable, without status migrainosus; I10 Essential (primary) hypertension; F41.9 Anxiety disorder, unspecified; F32.9 Major depressive disorder, single episode, unspecified; M79.7 Fibromyalgia; E03.9 Hypothyroidism, unspecified
CPT/HCPCS: 2000; 82436; 93005; 93010; 96374; G0378; J3490